=== PATIENT | female | born 2000 | race Two or more races ===

== ENCOUNTER 2024-09-13 23:15 | Emergency (ER) | payer MEDICAID ==
[~2024-09-13] VITALS: Ht 152.4 cm; Wt 54.0 kg
[2024-09-13 23:35] VITALS: BP 111/69; PULSE 90; RESP 18; TEMP 37; O2SAT 100
[2024-09-14] MEDS ORDERED: ACETAMINOPHEN 325MG TABLET PO ONE (00:30)
[2024-09-14] MEDS ORDERED: TETANUS, DIPHTHERIA, PERTUSSIS VAC/PF 0.5ML (>10YR OLD) IM ONE (00:30)
[2024-09-14] MEDS ORDERED: LIDOCAINE HCL 1% 20ML VIAL INFIL ONE (00:30)
[2024-09-14] MEDS ORDERED: CEPH500C2 MT (00:55)
[2024-09-14] MEDS ORDERED: IBUP-1523 MT (00:55)
[2024-09-14] MEDS ORDERED: TOPUD MT (00:55)
[2024-09-14] MEDS ORDERED: ACYC200C31 MT (00:55)
== END 2024-09-14 02:24 | disposition home or self-care (01) ==
LOC: ER 23:15
DX: L03.012 Cellulitis of left finger (principal); B02.9 Zoster without complications; Z79.899 Other long term (current) drug therapy
CPT/HCPCS: 10060; 99283; Z7610